=== PATIENT | male | born 1965 | race Caucasian/White ===

== ENCOUNTER 2020-02-23 05:40 | Emergency (ER) | payer OTHER ==
[2020-02-23 06:57] LABS: BASOPHIL 0.5 % (0-2); EOSINOPHIL 0.5 % (0-5); HCT 46.3 % (42.0-52.0); HGB 15.2 g/dl (13.2-18.0); LYMPHOCYTE 23.1 % (15-48); MCH 29.7 pg (25.0-31.0); MCHC 32.8 g/dL (32.0-36.0); MCV 90.4 fL (78.0-100.0); MONOCYTE 9.1 % (0-12); MPV 10.8 fL (6.0-9.5); NEUTROPHIL 66.3 % (41-80); NRBC 0; PLT 237 K/uL (150-400); RBC 5.12 M/uL (4.70-6.00); RDW 12.5 % (11.5-14.0); WBC 9.2 K/uL (4.0-10.5)
[2020-02-23] MEDS ORDERED: MEDROL 4MG DOSEP4 MG PO (06:57)
[2020-02-23] MEDS ORDERED: CYCLOBENZAPRINE10 MG PO (06:57)
[2020-02-23] MEDS ORDERED: IBUPROFEN800 MG PO (06:57)
[2020-02-23] MEDS ORDERED: NORCO 5-325 TA1 EACH PO (06:57)
[2020-02-23 07:31] LABS: BUN/CREAT RATIO (CALC) 20.2 RATIO; CREATININE 0.94 mg/dL (0.67-1.17); POTASSIUM 4.6 mmol/L (3.5-5.1)
[2020-02-23 09:15] LABS: BILIRUBIN NEGATIVE (NEGATIVE); BLOOD NEGATIVE Ery/uL (NEGATIVE); CLARITY CLEAR (CLEAR); COLOR YELLOW (YELLOW); GLUCOSE (U) NORMAL (NORMAL); LEUKOCYTES NEGATIVE Leu/uL (NEGATIVE); NITRITE NEGATIVE (NEGATIVE); PROTEIN NEGATIVE (NEGATIVE); UROBILINOGEN 0.2 mg/dL (0.2-1.0)
== END 2020-02-23 09:33 | disposition home or self-care (01) ==
LOC: FER 05:40
PROVIDERS: Emergency Medicine Emergency Medical Services
DX: S39.011A Strain of muscle, fascia and tendon of abdomen, initial encounter (principal); N50.811 Right testicular pain; R53.1 Weakness; I10 Essential (primary) hypertension; X50.9XXA Other and unspecified overexertion or strenuous movements or postures, initial encounter
CPT/HCPCS: 36415; 72170; 80048; 81003; 82550; 85025; 85379; J7512